=== PATIENT | female | born 1980 | race Caucasian/White ===

== ENCOUNTER → 2022-11-20 11:23 | Outpatient (BNVA) | payer BC, SELFPAY | PROVIDERS: PCP Family Medicine; Visit Provider Family Medicine | DX: E11.9 Type 2 diabetes mellitus without complications (principal); R53.83 Other fatigue; Z13.220 Encounter for screening for lipoid disorders; Z13.6 Encounter for screening for cardiovascular disorders; Z68.41 Body mass index [BMI] 40.0-44.9, adult; I10 Essential (primary) hypertension | CPT/HCPCS: 80053; 80061; 83036; 84443 ==

== ENCOUNTER → 2023-04-16 10:16 | Outpatient (BNVA) | payer BC, SELFPAY | PROVIDERS: PCP Family Medicine; Visit Provider Family Medicine | DX: G43.109 Migraine with aura, not intractable, without status migrainosus (principal); I10 Essential (primary) hypertension; E11.9 Type 2 diabetes mellitus without complications; E78.2 Mixed hyperlipidemia; R30.0 Dysuria; M62.831 Muscle spasm of calf; R39.198 Other difficulties with micturition | CPT/HCPCS: 80053; 80061; 81000; 82043; 83036; 83735 ==

== ENCOUNTER → 2023-06-05 09:21 | Outpatient (BNVA) | payer BC, SELFPAY | PROVIDERS: PCP Family Medicine; Visit Provider Emergency Medicine | DX: R68.89 Other general symptoms and signs (principal); U07.1 COVID-19 | CPT/HCPCS: 87426 ==

== ENCOUNTER → 2023-10-24 10:32 | Outpatient (BNVA) | payer BC, SELFPAY | PROVIDERS: PCP Family Medicine; Visit Provider Emergency Medicine | DX: R55 Syncope and collapse (principal); I10 Essential (primary) hypertension; K59.09 Other constipation | CPT/HCPCS: 93005 ==

== ENCOUNTER → 2023-10-27 11:16 | Outpatient (BNVA) | payer BC, SELFPAY | PROVIDERS: PCP Family Medicine; Visit Provider Family Medicine | DX: E11.9 Type 2 diabetes mellitus without complications | CPT/HCPCS: 80053; 80061; 82043; 83036 ==

== ENCOUNTER → 2023-12-01 09:14 | Outpatient (BNVA) | payer BC, SELFPAY | PROVIDERS: PCP Family Medicine; Visit Provider Family Medicine | DX: Z12.4 Encounter for screening for malignant neoplasm of cervix (principal); Z01.419 Encounter for gynecological examination (general) (routine) without abnormal findings; I10 Essential (primary) hypertension; G43.E09 Chronic migraine with aura, not intractable, without status migrainosus | CPT/HCPCS: 87624 ==

== ENCOUNTER 2023-12-17 07:49 | Day surgery (SDC) | payer BC, SELFPAY ==
[2023-12-17] MEDS: sodium chloride 0.9% 1,000 ML 30 ML IV (08:21)
[2023-12-17 08:22] VITALS: BP 127/77; PULSE 82; RESP 18; TEMP 36.3; O2SAT 97
[2023-12-17 08:24] LABS: OR HCG Qualitative Urine Negative (Negative)
--- NOTE | 2023-12-17 09:18 | P.ANESASSM_ITS ---
Pre-Anesthetic Assessment Height/Weight: Height 1.68 m Weight 108.409 kg Temp Pulse Resp BP Pulse Ox O2 Del Method 97.3 F L 82 18 127/77 97 Room Air 12/17/23 08:22 12/17/23 08:22 12/17/23 08:22 12/17/23 08:22 12/17/23 08:22 12/17/23 08:22 Preop Diagnosis: gerd, hematochezia Operation Date: 12/17/23 09:15 Proposed Procedures p EGD 75500 , 66796, G0105, K59.00, K21.00 , K92.1(Not Applicable) - DO sterling Fischer Colonoscopy(Not Applicable) - Cb An DO Familial anesthetic complications: None Was Beta Lyndsay taken within 24 hours: N/A Was Clonidine taken within 24 hours: N/A Last intake: Intake Last Liquid Date 12/16/23 Last Liquid Time 22:00 Last Solid Date 12/15/23 Last Solid Time 18:30 Social No alcohol and No tobacco Exam alert, oriented x 3 and clear to auscultation bilaterally Airway Mallampati: Class II Dentition: full (missing some upper teeth, multiple cracked ) History/ROS No significant history except as noted Pulmonary None reported CV/HEM Hypertension None reported Hepatic None reported GI Gastroesophageal Reflux Disease Metabolic None reported Musc/skel None reported Neuropsych migranes Anesthetic Plan ASA status: 2 Anesthesia: Anesthesia Evaluation and MAC Risk of > 500 ml blood loss (7ml/kg in children): No Medications/Allergies Home Medications Medication Instructions Recorded Confirmed Last Taken Type losartan 25 mg tablet 12.5 mg (1/2 x 25 mg) PO DAILY 90 10/27/23 12/15/23 12/16/23 Rx days #45 tabs topiramate 25 mg tablet 25 mg PO BID 30 days #60 tabs 10/27/23 12/15/23 12/16/23 Rx pantoprazole 40 mg tablet,delayed 40 mg PO BID 6 weeks #84 tabs 11/14/23 12/15/23 12/16/23 Rx release (Protonix) psyllium husk 0.4 gram capsule 0.4 g PO DAILY PRN soften 11/14/23 12/15/23 12/16/23 History (Metamucil) Allergies Allergy/AdvReac Type Severity Reaction Status Date / Time No Known Allergies Allergy Verified 12/17/23 08:04 Current Medications Generic Name Dose Route Start Last Admin Trade Name Macarioq PRN Reason Stop Dose Admin Sodium Chloride 1,000 mls @ 30 mls/hr 12/17/23 08:00 12/17/23 08:21 Sodium Chloride 0.9% IV 12/18/23 07:59 30 mls/hr .Q24H MATT Administration PFSH Anesthesia Family History Father Cancer kidney Diabetes Sister Lupus Clotting disorder Stroke Daughter Clotting disorder Grandmother Diabetes maternal Mother Heart disease born with abnormal heart valve Denies family history of Chronic kidney disease (CKD) Bleeding disorder Hypertension Thyroid disease Social History Smoking and tobacco/nicotine status: former use of tobacco/nicotine Quit status (tobacco/nicotine): has quit using Year quit tobacco: 2019 Alcohol intake: current Alcohol intake frequency: holidays/special occasions only Female Reproductive History Date of last menstrual period: 12/01/23 Data Anesthesia Cardiac Studies: No Data to Display
--- NOTE | 2023-12-17 09:51 | PM.HP ---
Providers/Chief Complaint Primary Care Provider: Zuleyma No MD Chief Complaint: K59.00, K21.00, K92.1 History of Present Illness Christine Patel is a 42 year old female Review of Systems General: Reports: 10 or more systems reviewed and unremarkable except in HPI and below Medications/Allergies Home Medications Medication Instructions Recorded Confirmed Last Taken Type losartan 25 mg tablet 12.5 mg (1/2 x 25 mg) PO DAILY 90 10/27/23 12/15/23 12/16/23 Rx days #45 tabs topiramate 25 mg tablet 25 mg PO BID 30 days #60 tabs 10/27/23 12/15/23 12/16/23 Rx pantoprazole 40 mg tablet,delayed 40 mg PO BID 6 weeks #84 tabs 11/14/23 12/15/23 12/16/23 Rx release (Protonix) psyllium husk 0.4 gram capsule 0.4 g PO DAILY PRN soften 11/14/23 12/15/23 12/16/23 History (Metamucil) Allergies Allergy/AdvReac Type Severity Reaction Status Date / Time No Known Allergies Allergy Verified 12/17/23 08:04 PFSH Acute PFSH: Family History Father Cancer kidney Diabetes Sister Lupus Clotting disorder Stroke Daughter Clotting disorder Grandmother Diabetes maternal Mother Heart disease born with abnormal heart valve Denies family history of Chronic kidney disease (CKD) Bleeding disorder Hypertension Thyroid disease Social History Smoking and tobacco/nicotine status: former use of tobacco/nicotine Quit status (tobacco/nicotine): has quit using Year quit tobacco: 2019 Alcohol intake: current Alcohol intake frequency: holidays/special occasions only Female Reproductive History: Date of last menstrual period: 12/01/23 Vitals/I&O/Wt Last Vital Signs Temp 97.3 F L 12/17/23 08:22 Pulse 82 12/17/23 08:22 Resp 18 12/17/23 08:22 BP 127/77 12/17/23 08:22 Pulse Ox 97 12/17/23 08:22 O2 Del Method Room Air 12/17/23 08:22 Weight last 48 hrs Weight 239 lb A&P Assessment and plan (1) GERD (gastroesophageal reflux disease): Qualifiers: Esophagitis presence: with esophagitis Esophagitis bleeding: without hemorrhage Qualified Code(s): K21.00 - Gastro-esophageal reflux disease with esophagitis, without bleeding (2) Hematochezia: Plan EGD and colonoscopy Attestations Medical Necessity Statement*: Home Coding Level of Care Code Acute Code for Chg Fwd Diagnoses Gastroesophageal reflux disease with esophagitis without hemorrhage K21.00 Esophagitis presence: with esophagitis Esophagitis bleeding: without hemorrhage Hematochezia K92.1
[2023-12-17 10:18] VITALS: BP 95/59; PULSE 78; RESP 16; TEMP 36.4; O2SAT 96
[2023-12-17 10:43] VITALS: BP 99/62; PULSE 75; RESP 16; O2SAT 96
[2023-12-17 10:50] VITALS: BP 106/60; PULSE 74; RESP 18; O2SAT 96
--- NOTE | 2023-12-17 14:40 | ANE.PACU2 ---
Inpatient post-anesthesia follow up: Airway intact: Yes Vital signs: Temperature 97.5 F Pulse Rate 74 Respiratory Rate 18 Blood Pressure 106/60 Pulse Oximetry 96 Oxygen Delivery Me thod Room Air Oxygen Flow Rate Fraction of Inspir ed Oxygen Hydration adequate: Yes Nausea and vomiting: No Pain level: 2 Mental status: Baseline
== END 2023-12-17 11:02 | disposition home or self-care (01) ==
PROVIDERS: Anesthesiology; PCP Family Medicine; Visit Provider Surgery
PROC: 0DJ08ZZ Inspection of Upper Intestinal Tract, Via Natural or Artificial Opening Endoscopic (ICD-10-PCS; CPT 43235; principal; 2023-12-17 09:15)
PROC: 0DJD8ZZ Inspection of Lower Intestinal Tract, Via Natural or Artificial Opening Endoscopic (ICD-10-PCS; CPT 45378; 2023-12-17 09:15)
DX: K51.40 Inflammatory polyps of colon without complications (principal); K62.1 Rectal polyp; K64.8 Other hemorrhoids
CPT/HCPCS: 43239; 45385; 81025; 88305; J2704; J7030

== ENCOUNTER → 2024-04-14 08:32 | Outpatient (BNVA) | payer BC, SELFPAY | PROVIDERS: PCP Family Medicine; Visit Provider Family Medicine | DX: E11.9 Type 2 diabetes mellitus without complications (principal); E78.2 Mixed hyperlipidemia | CPT/HCPCS: 80053; 80061; 82043; 83036 ==

== ENCOUNTER → 2025-04-11 09:29 | Outpatient (BNVA) | payer BC, SELFPAY | PROVIDERS: PCP Family Medicine; Visit Provider Family Medicine | DX: E11.9 Type 2 diabetes mellitus without complications (principal); E78.2 Mixed hyperlipidemia | CPT/HCPCS: 80053; 80061; 82043; 83036 ==